=== PATIENT | female | born 1950 | race Caucasian/White ===

== ENCOUNTER 2018-12-20 13:01 | Emergency (ER) | payer OTHER ==
[~2018-12-20] VITALS: Ht 157.5 cm; Wt 72.6 kg
[2018-12-20] MEDS ORDERED: CABERGOLINE (13:07)
[2018-12-20] MEDS ORDERED: IMITREX100 MG (13:08)
[2018-12-20] MEDS ORDERED: SYNTHROID50 MCG (13:08)
== END 2018-12-20 19:01 | disposition home or self-care (01) ==
LOC: ER 13:01
DX: B34.9 Viral infection, unspecified (principal); J11.1 Influenza due to unidentified influenza virus with other respiratory manifestations